=== PATIENT | female | born 1960 | race Caucasian/White ===

== ENCOUNTER 2018-09-13 09:04 | Emergency (ER) | payer OTHER ==
[~2018-09-13] VITALS: Ht 157.5 cm; Wt 59.0 kg
[2018-09-13] MEDS ORDERED: TAMS0.4C PO (13:54)
[2018-09-13] MEDS ORDERED: ZOFRAN8 MG PO (13:54)
[2018-09-13] MEDS ORDERED: PERCOCET 5-3251 EACH PO (13:54)
== END 2018-09-13 14:07 | disposition home or self-care (01) ==
LOC: ER 09:04
DX: R10.84 Generalized abdominal pain (principal)

== ENCOUNTER 2019-05-05 14:54 | Outpatient (CLI) | payer OTHER ==
[~2019-05-05 14:54] MED LIST: PERCOCET 5-3251 EACH PO; TAMS0.4C PO; ZOFRAN8 MG PO
== END 2019-05-05 15:03 | disposition home or self-care (01) ==
LOC: MAMO-SONO 14:54
DX: N60.11 Diffuse cystic mastopathy of right breast (principal); N60.12 Diffuse cystic mastopathy of left breast

== ENCOUNTER 2019-11-15 14:39 | Outpatient (CLI) | payer OTHER | END 2019-11-15 14:52 | disposition home or self-care (01) | LOC: SONOGRAMA 14:39 | DX: M75.51 Bursitis of right shoulder (principal) ==

== ENCOUNTER 2019-12-05 15:08 | Outpatient (CLI) | payer OTHER | END 2019-12-05 15:16 | disposition home or self-care (01) | LOC: SONOGRAMA 15:08 → MAMO-SONO 15:15 → SONOGRAMA 15:16 | DX: E04.2 Nontoxic multinodular goiter (principal) ==

== ENCOUNTER 2020-06-27 09:44 | Outpatient (CLI) | payer OTHER | END 2020-06-27 10:06 | disposition home or self-care (01) | LOC: MAMO-SONO 09:44 | PROVIDERS: ATTEND Obstetrics & Gynecology | DX: Z12.31 Encounter for screening mammogram for malignant neoplasm of breast (principal); N60.11 Diffuse cystic mastopathy of right breast; R10.2 Pelvic and perineal pain ==

== ENCOUNTER 2020-07-25 04:28 | Emergency (ER) | payer OTHER ==
[~2020-07-25] VITALS: Ht 157.5 cm; Wt 58.1 kg
[2020-07-25] MEDS ORDERED: ZOLOFT50 MG (04:33)
[2020-07-25] MEDS ORDERED: KEFLEX500 MG PO (07:15)
[2020-07-25] MEDS ORDERED: PYRIDIUM DS200 MG PO (07:15)
== END 2020-07-25 07:58 | disposition home or self-care (01) ==
LOC: ER 04:28
DX: N30.81 Other cystitis with hematuria (principal); B96.29 Other Escherichia coli [E. coli] as the cause of diseases classified elsewhere; R31.0 Gross hematuria

== ENCOUNTER 2021-08-19 15:01 | Outpatient (CLI) | payer OTHER ==
[~2021-08-19 15:01] MED LIST changes: +KEFLEX500 MG PO; +PYRIDIUM DS200 MG PO; +ZOLOFT50 MG
== END 2021-08-19 15:14 | disposition home or self-care (01) ==
LOC: MAMO-SONO 15:01
PROVIDERS: ATTEND Obstetrics & Gynecology
DX: N60.12 Diffuse cystic mastopathy of left breast (principal); N64.89 Other specified disorders of breast; Z12.31 Encounter for screening mammogram for malignant neoplasm of breast

== ENCOUNTER 2021-12-23 13:01 | Outpatient (CLI) | payer OTHER | END 2021-12-23 13:05 | disposition home or self-care (01) | LOC: NUCLEAR 13:01 | PROVIDERS: ATTEND Internal Medicine | DX: M81.0 Age-related osteoporosis without current pathological fracture (principal) ==

== ENCOUNTER 2021-12-24 14:00 | Outpatient (CLI) | payer OTHER | END 2021-12-24 14:18 | disposition home or self-care (01) | LOC: SONOGRAMA 14:00 | PROVIDERS: ATTEND Internal Medicine | DX: E04.2 Nontoxic multinodular goiter (principal); R22.1 Localized swelling, mass and lump, neck ==

== ENCOUNTER 2022-03-30 07:43 | Emergency (ER) | payer OTHER ==
[~2022-03-30] VITALS: Ht 157.5 cm; Wt 56.7 kg
[2022-03-30] MEDS ORDERED: CIPRO500 MG PO (11:06)
[2022-03-30] MEDS ORDERED: TAMS0.4C PO (11:06)
== END 2022-03-30 13:56 | disposition home or self-care (01) ==
LOC: ER 07:43
DX: N39.0 Urinary tract infection, site not specified (principal); B96.29 Other Escherichia coli [E. coli] as the cause of diseases classified elsewhere; R30.0 Dysuria; R31.9 Hematuria, unspecified; N20.0 Calculus of kidney; K59.00 Constipation, unspecified; Z88.6 Allergy status to analgesic agent; Z88.8 Allergy status to other drugs, medicaments and biological substances

== ENCOUNTER 2023-10-26 19:34 | Emergency (ER) | payer OTHER ==
[~2023-10-26] VITALS: Ht 160 cm; Wt 59.0 kg
[~2023-10-26 19:34] MED LIST changes: +CIPRO500 MG PO
[2023-10-26 23:12] LABS: PH,URINE 5.5 (5.0-8.0); URINE APPEARANCE Turbid; URINE BILIRRUBIN Negative (NEGATIVE); URINE BLOOD Large; URINE COLOR Yellow; URINE GLUCOSE Negative (NEGATIVE); URINE LEUKOCYTE Moderate; URINE NITRATE Positive; URINE PROTEIN 30 (NEGATIVE); URINE UROBILINOGEN 0.2 E.U./dl
[2023-10-26 23:16] LABS: URINE BACTERIA 5150.6 uL (0.0-1933); URINE EPITHELIAL CELLS 14.6 uL (0.0-38.8); URINE WBC 3266.2 uL (0.0-23.2)
== END 2023-10-26 23:57 | disposition home or self-care (01) ==
LOC: ER 19:35
PROVIDERS: General Practice
DX: N30.90 Cystitis, unspecified without hematuria (principal)
CPT/HCPCS: 96372; 99282; J0696

== ENCOUNTER 2024-01-01 02:57 | Emergency (ER) | payer OTHER ==
[~2024-01-01] VITALS: Ht 158.8 cm; Wt 59.0 kg
[2024-01-01] MEDS ORDERED: MACROBID 100 M100 MG PO (03:37)
[2024-01-01] MEDS ORDERED: PYRIDIUM100 M1 PO (03:38)
[2024-01-01] MEDS ORDERED: KETOROLAC TROMETHAMINE 30 MG VIAL IV STA (04:34)
[2024-01-01] MEDS ORDERED: PROMETHAZINE HCL 25 MG/ML AMPUL IM STA (04:35)
[2024-01-01] MEDS ORDERED: MEPERIDINE HCL/PF 25 MG/ML VIAL IM STA (04:35)
[2024-01-01 04:57] LABS: URINE APPEARANCE Clear; URINE BILIRRUBIN Negative (NEGATIVE); URINE BLOOD Negative; URINE COLOR Dark Yellow; URINE GLUCOSE Negative (NEGATIVE); URINE LEUKOCYTE Trace; URINE NITRATE Positive; URINE PROTEIN Negative (NEGATIVE)
[2024-01-01 04:59] LABS: HEMOGLOBIN 12.3 g/dL (12.0-15.00); MEAN CELL VOLUME 90.5 fL (80.00-100.00); MEAN CORPUSCULAR HGB CONC 33.2 g/dl (32.0-36.0); PLATELET COUNT 179 K/uL (150-450); RED BLOOD COUNT 4.09 M/uL (4.00-6.00); RED CELL DISTRIBUTION WIDTH 13.3 % (11.5-14.5)
[2024-01-01 05:00] LABS: URINE BACTERIA 6.2 uL (0.0-1933); URINE RBC 8.4 uL (0.0-20.8)
[2024-01-01 05:31] LABS: URINE EPITHELIAL CELLS 0.4 uL (0.0-38.8); URINE WBC 0.6 uL (0.0-23.2)
[2024-01-01] MEDS ORDERED: CIPROFLOXACIN IN 5 % DEXTROSE 400 MG/200 ML PIGGYBAG IV STA (06:07)
[2024-01-01 06:32] LABS: CALCIUM 9.3 mg/dL (8.5-10.1); CREATININE SERUM 0.98 mg/dL (0.55-1.02); GFR 57.32; POTASSIUM 4.13 mEq/L (3.5-5.1)
== END 2024-01-01 08:27 | disposition home or self-care (01) ==
LOC: ER 02:57
DX: N39.0 Urinary tract infection, site not specified (principal); R30.0 Dysuria; Z88.8 Allergy status to other drugs, medicaments and biological substances; N23 Unspecified renal colic; N20.1 Calculus of ureter

== ENCOUNTER 2024-04-18 13:36 | Outpatient (CLI) | payer OTHER ==
[~2024-04-18 13:36] MED LIST changes: +MACROBID 100 M100 MG PO; +PYRIDIUM100 M1 PO
== END 2024-04-18 13:52 | disposition home or self-care (01) ==
LOC: SONOGRAMA 13:36
PROVIDERS: ATTEND Internal Medicine
DX: E04.2 Nontoxic multinodular goiter (principal)

== ENCOUNTER 2024-04-19 13:26 | Outpatient (CLI) | payer OTHER | END 2024-04-19 13:27 | disposition home or self-care (01) | LOC: NUCLEAR 13:26 | PROVIDERS: ATTEND Internal Medicine | DX: M81.0 Age-related osteoporosis without current pathological fracture (principal) ==

== ENCOUNTER 2024-05-31 10:19 | Outpatient (CLI) | payer OTHER | END 2024-05-31 10:36 | disposition home or self-care (01) | LOC: SONOGRAMA 10:19 | PROVIDERS: ATTEND Urology | DX: R31.0 Gross hematuria (principal); N20.0 Calculus of kidney ==